=== PATIENT | female | born 1975 | race Caucasian/White ===

== ENCOUNTER 2018-03-09 17:36 | Emergency (ER) | payer MEDICAID ==
[~2018-03-09] VITALS: Ht 152.4 cm; Wt 63.6 kg
[2018-03-09] MEDS ORDERED: ACETAMINOPHEN 325 MG TABLET PO ONE (18:45)
[2018-03-09] MEDS ORDERED: METOCLOPRAMIDE HCL 10 MG TABLET PO ONE (19:45)
[2018-03-09] MEDS ORDERED: DiphenhydrAMINE HCL 25 MG CAPSULE PO ONE (19:45)
[2018-03-09 20:35] VITALS: BP 122/70
== END 2018-03-09 20:37 | disposition home or self-care (01) ==
LOC: EMS 17:37
DX: R51 Headache (principal); Z88.6 Allergy status to analgesic agent; Z88.5 Allergy status to narcotic agent
CPT/HCPCS: 70450; 99284